=== PATIENT | female | born 1960 | race African-American/Black ===

== ENCOUNTER 2024-05-02 19:21 | Inpatient (IN) | payer OTHER ==
[2024-05-02 19:55] VITALS: BMI 16.2
[2024-05-02] MEDS ORDERED: diazePAM 5 MG TABLET PO PRN (20:13)
[2024-05-02] MEDS ORDERED: MAGNESIUM HYDROX 2400MG/30ML ORAL SUSPENSION 30 ML CUP PO PRN (20:24)
[2024-05-02] MEDS ORDERED: BENZONATATE 200 MG CAPSULE PO PRN (20:24)
[2024-05-02] MEDS ORDERED: ACETAMINOPHEN 325 MG TABLET (FP) PO PRN (20:24)
[2024-05-02] MEDS ORDERED: P-EPHED 60MG/TRIPROLIDI 2.5MG TABLET PO PRN (20:24)
[2024-05-02] MEDS ORDERED: DICYCLOMINE HCL 10 MG CAPSULE PO PRN (20:24)
[2024-05-02] MEDS ORDERED: NALOXONE (NARCAN) HCL 4 MG/0.1 ML SPRAY NS PRN (20:24)
[2024-05-02] MEDS ORDERED: IBUPROFEN 600 MG TABLET (FP) PO PRN (20:24)
[2024-05-02] MEDS ORDERED: LOPERAMIDE HCL 2 MG CAPSULE PO PRN (20:24)
[2024-05-02] MEDS ORDERED: MAG HYDROX/AL HYDROX/SIMETH 30 ML UNIT-DOSE CUP PO PRN (20:24)
[2024-05-02] MEDS ORDERED: IBUPROFEN 400 MG TABLET (FP) PO PRN (20:24)
[2024-05-02] MEDS ORDERED: BENZOCAINE/MENTHOL (CHLORASEPTIC ) LOZENGE MM PRN (20:24)
[2024-05-02] MEDS ORDERED: BISMUTH SUBSALICYLATE 524 MG/30 ML PO PRN (20:24)
[2024-05-02] MEDS ORDERED: POLYETHYLENE GLYCOL (HEALTHYLAX) 3350 17 GM PACKET PO PRN (20:24)
[2024-05-02] MEDS ORDERED: guaiFENesin 600 MG TABLET.ER (FP) PO PRN (20:24)
[2024-05-02] MEDS ORDERED: diazePAM 5 MG TABLET ONE (21:25)
[2024-05-02] MEDS ORDERED: propRANOLol HCL 10 MG TABLET ONE (21:26)
[2024-05-02] MEDS: diazePAM 5 MG TABLET PO ONE (21:28)
[2024-05-02] MEDS: propRANOLol HCL 10 MG TABLET PO ONE (21:28)
[2024-05-02] MEDS: MAGNESIUM OXIDE 400 MG TABLET (FP) PO SCH (23:07)
[2024-05-02] MEDS: MELATONIN 5 MG TABLETS PO SCH (23:07)
[2024-05-02] MEDS: THIAMINE 100 MG TABLET PO SCH (23:07)
[2024-05-02] MEDS: diazePAM 5 MG TABLET PO SCH (23:42)
[2024-05-03] MEDS: PRENATAL VITAMINS W/ FOLIC ACID TABLET (FP) PO SCH (10:22)
[2024-05-03] MEDS: predniSONE 20 MG TABLET (UD) PO SCH (10:22)
[2024-05-03 11:07] LABS: HEMATOCRIT 24.1 % (32.4-45.2); MCH 34.2 pg (25.7-33.7); MCHC 33.1 g/dl (32.0-36.0); MEAN CELL VOLUME 103.5 fl (80-96); MEAN PLT VOLUME 8.9 fl (7.5-11.1); PLATELET COUNT 123 10^3/uL (134-434); RBC 2.33 M/mm3 (3.60-5.2); RDW 17.6 % (11.6-15.6); WHITE BLOOD COUNT 2.7 K/mm3 (4.0-10.0)
[2024-05-03 11:22] LABS: CHLORIDE 93 mmol/L (98-107); POTASSIUM 3.3 mmol/L (3.5-5.1); SODIUM 139 mmol/L (136-145)
[2024-05-03 11:30] LABS: ALBUMIN 2.7 g/dl (3.4-5.0); BLOOD UREA NITROGEN 5.7 mg/dL (7-18)
[2024-05-03 11:31] LABS: ANION GAP 6 mmol/L (4-13); CO2 41 mmol/L (21-32); GLUCOSE,RANDOM 116 mg/dL (74-106); MAGNESIUM 1.2 mg/dL (1.8-2.4)
[2024-05-03 11:34] LABS: CREATININE 0.5 mg/dL (0.55-1.3); SGOT/AST 141 U/L (15-37); SGPT/ALT 70 U/L (13-61)
[2024-05-03 11:35] LABS: BILIRUBIN,TOTAL 1.4 mg/dL (0.2-1)
[2024-05-03 11:36] LABS: ALK PHOS 74 U/L (45-117); TOT PROT 5.5 g/dl (6.4-8.2)
[2024-05-03] MEDS: CALCIUM 500MG/VIT-D 200 UNITS COMBO TABLET (FP) PO SCH (13:50)
[2024-05-03] MEDS: POTASSIUM CHLORIDE ORAL LIQUID 20 MEQ/15 ML PO ONE (13:50)
[2024-05-03] MEDS: EMPAGLIFLOZIN (JARDIANCE) 10 MG TABLET PO SCH (15:39)
[2024-05-03] MEDS: ALBUTEROL SO4 HFA INHALER IH PRN (18:07)
[2024-05-03] MEDS: BUDESONIDE/FORMETEROL FUMARATE 160/4.5 mcg INHALER IH SCH (22:52)
[2024-05-04] MEDS: diazePAM 5 MG TABLET PO SCH (06:33)
[2024-05-05] MEDS: diazePAM 5 MG TABLET PO SCH (06:22)
[2024-05-05] MEDS: ALBUTEROL SO4 2.5/IPRATROPIUM 0.5 INH SOL 3 ML VIAL.NEB. NEB PRN (19:32)
[2024-05-06] MEDS: diazePAM 5 MG TABLET PO ONE (06:14)
[2024-05-06] MEDS: POTASSIUM CHLORIDE ORAL LIQUID 20 MEQ/15 ML PO ONE (17:56)
[2024-05-07] MEDS: ONDANSETRON *ODT* 4 MG TABLET SL PRN (00:31)
[2024-05-07 08:56] VITALS: RESP 18
[2024-05-07 11:16] LABS: HEMATOCRIT 25.8 % (32.4-45.2); HEMOGLOBIN 8.2 GM/dL (10.7-15.3); MCH 33.9 pg (25.7-33.7); MCHC 31.9 g/dl (32.0-36.0); MEAN CELL VOLUME 106.3 fl (80-96); MEAN PLT VOLUME 9.4 fl (7.5-11.1); PLATELET COUNT 128 10^3/uL (134-434); RBC 2.42 M/mm3 (3.60-5.2); RDW 17.2 % (11.6-15.6); WHITE BLOOD COUNT 5.3 K/mm3 (4.0-10.0)
[2024-05-07 11:21] LABS: CHLORIDE 88 mmol/L (98-107); POTASSIUM 5.5 mmol/L (3.5-5.1); SODIUM 137 mmol/L (136-145)
[2024-05-07 11:42] LABS: ALBUMIN 2.8 g/dl (3.4-5.0); BLOOD UREA NITROGEN 9.6 mg/dL (7-18); GLUCOSE,RANDOM 77 mg/dL (74-106)
[2024-05-07 11:44] LABS: CREATININE 0.5 mg/dL (0.55-1.3); SGPT/ALT 36 U/L (13-61)
[2024-05-07 11:45] LABS: SGOT/AST 29 U/L (15-37)
[2024-05-07 11:46] LABS: BILIRUBIN,TOTAL 0.5 mg/dL (0.2-1); TOT PROT 5.6 g/dl (6.4-8.2)
[2024-05-07 11:47] LABS: ALK PHOS 60 U/L (45-117)
[2024-05-07 12:18] LABS: ANION GAP 4 mmol/L (4-13); CALCIUM 10.5 mg/dL (8.5-10.1); CO2 > 45 mmol/L (21-32)
[2024-05-07 13:15] VITALS: BP 138/82; PULSE 83; TEMP 97.1
== END 2024-05-07 13:23 | disposition home or self-care (01) | DRG 775 ==
LOC: YASAS 19:21 → Y3N 22:15
PROVIDERS: ADMIT Allergy & Immunology; ATTEND Psychiatry & Neurology Pain Medicine
PROC: HZ2ZZZZ Detoxification Services for Substance Abuse Treatment (ICD-10-PCS; principal; 2024-05-02)
DX: F10.230 Alcohol dependence with withdrawal, uncomplicated (principal); E87.6 Hypokalemia; I10 Essential (primary) hypertension; J41.0 Simple chronic bronchitis; Z99.81 Dependence on supplemental oxygen; R79.89 Other specified abnormal findings of blood chemistry; Z87.891 Personal history of nicotine dependence
CPT/HCPCS: 0241U-QW; 36415; 80053; 80305; 80307; 82962; 83735; 85027; 86593; 86780; 93005; 93010; 94640; Q0162